=== PATIENT | female | born 1980 | race African-American/Black ===

== ENCOUNTER 2024-10-23 00:24 | Emergency (ER) | payer SELFPAY ==
[~2024-10-23] VITALS: Ht 172.7 cm; Wt 87.0 kg
[2024-10-23 00:32] VITALS: BP 137/77; PULSE 120; RESP 22; TEMP 98.5; O2SAT 99
[2024-10-23] MEDS ORDERED: GLUCAGON,HUMAN RECOMBINANT 1MG/VIAL IM ONE (00:45)
[2024-10-23] MEDS ORDERED: MAGNESIUM/ALUMINUM HYDROXIDE/SIMETHICONE 30ML UDC PO ONE (00:45)
[2024-10-23] MEDS ORDERED: VISCOUS LIDOCAINE 2% 15 ML UDC PO NR (04:45)
[2024-10-23] MEDS ORDERED: GLUCAGON,HUMAN RECOMBINANT 1MG/VIAL IM NR (04:45)
[2024-10-23] MEDS ORDERED: MAGNESIUM/ALUMINUM HYDROXIDE/SIMETHICONE 30ML UDC PO NR (04:45)
== END 2024-10-23 04:58 | disposition left against medical advice (07) ==
LOC: ER 00:24
DX: R09.A2 Foreign body sensation, throat (principal); K21.9 Gastro-esophageal reflux disease without esophagitis
CPT/HCPCS: 99283